=== PATIENT | male | born 1985 | race Caucasian/White ===

== ENCOUNTER 2023-06-03 16:52 | Emergency (ER) | payer OTHER, SELFPAY ==
[2023-06-03 17:07] VITALS: BP 134/61; PULSE 68; RESP 16; TEMP 36.6; O2SAT 100
--- NOTE | 2023-06-03 17:08 | ED.EAR ---
HPI - Ear Problem General Chief complaint: Ear Stated complaint: bilateral ear discomfort Time Seen by Provider: 06/03/23 17:06 Source: patient and RN notes reviewed Mode of arrival: ambulatory Limitations: no limitations History of Present Illness HPI Narrative: 38-year-old male presents with concern for bilateral ear pressure, sinus pain and pressure for 2 weeks. Reports he has been taking [id number] medications including allergy medicine, Sudafed, Flonase. He denies fever, aches, chills, sweats, shortness of breath, cough MD Complaint: ear pain Related Data Home Medications Medication Instructions Recorded Confirmed fexofenadine 180 mg tablet 180 mg PO DAILY 06/03/23 06/03/23 ([facility]) Allergies Allergy/AdvReac Type Severity Reaction Status Date / Time No Known Allergies Allergy Verified 06/03/23 16:59 Review of Systems Review of Systems: CONSTITUTIONAL: Denies malaise, chills, sweats, or fever. EYES: Denies visual changes, redness, or discharge. ENT: Reports rhinorrhea, congestion, sinus pain, ear pain CARDIOVASCULAR: Denies chest pain, palpitations, or edema. RESPIRATORY: Denies cough. Denies dyspnea. GASTROINTESTINAL: Denies abdominal pain, nausea, vomiting, diarrhea SKIN: Denies rash or itching. MUSCULOSKELETAL: Denies myalgia. NEUROLOGIC: Reports headache. All systems reviewed & are unremarkable except as noted in HPI and below PMFSH Comments At time of signature, agree with nursing past medical, surgical, social and family history. There is no relevant family history pertinent to the presenting complaint Exam Narrative: GENERAL: Well-appearing, well-nourished, and in no acute distress. HEAD: Normocephalic EYES: PERRLA, conjunctivae clear ENT: Nares clear, turbinates edematous. Mucous membranes moist. Right TtM pearly gomez with sharp light reflex, left TM erythematous; no tragal tenderness. Oropharynx not erythematous without lesions. Tonsils not enlarged and without exudate, no drooling, no hoarseness, no trismus, uvula midline. NECK: Supple. No lymphadenopathy CHEST: Clear to auscultation, breath sounds equal. No wheezing, rhonchi, rales, or stridor. No respiratory distress, speaks in full sentences. HEART: Regular rate and rhythm. No murmur heard. SKIN: Warm, dry, no rash. NEURO: Alert and oriented x3. PSYCH: Normal mood and affect Course Course Emergency Course: Patient is aware of diagnosis, understands and agrees to treatment plan. Anticipatory guidance given. Patient agrees to follow-up as directed and is aware of reasons to seek care at the emergency department. Portions of this record may have been created with voice recognition software Level of Care: Express Care Visit Vital Signs Vital signs: Vital Signs Temperature 97.9 F 06/03/23 17:07 Pulse Rate 68 06/03/23 17:07 Respiratory Rate 16 06/03/23 17:07 Blood Pressure 134/61 06/03/23 17:07 Pulse Oximetry 100 06/03/23 17:07 Oxygen Delivery Room Air 06/03/23 17:07 Temperature 97.9 F 06/03/23 17:07 Pulse Rate 68 06/03/23 17:07 Respiratory Rate 16 06/03/23 17:07 Blood Pressure 134/61 06/03/23 17:07 Pulse Oximetry 100 06/03/23 17:07 Oxygen Delivery Room Air 06/03/23 17:07 Reviewed. Medical Decision Making MDM Narrative Medical decision making narrative: Differential diagnosis considered: Quick virus, strep pharyngitis, allergic rhinitis, upper respiratory tract infection, sinusitis, rhinosinusitis, nasopharyngitis. viral pharyngitis, otitis media, otitis externa, otitis effusion, cerumen impaction, foreign body. Exam findings show no acute concerns or changes; patient is non-toxic appearing and is in no distress. Patient is appropriate for outpatient treatment and follow-up. Vital Signs Vital Signs: Vital Signs Temperature 97.9 F 06/03/23 17:07 Pulse Rate 68 06/03/23 17:07 Respiratory Rate 16 06/03/23 17:07 Blood Pressure 134/61 06/03/23
== END 2023-06-03 17:18 | disposition home or self-care (01) ==
PROVIDERS: Emergency Provider Nurse Practitioner
DX: J01.90 Acute sinusitis, unspecified (principal)
CPT/HCPCS: 99203; G0463

== ENCOUNTER 2023-07-27 16:25 | Emergency (ER) | payer OTHER, SELFPAY ==
[2023-07-27 16:37] VITALS: BP 139/62; PULSE 74; RESP 18; TEMP 36.2; O2SAT 99
--- NOTE | 2023-07-27 16:59 | ED.URI ---
HPI - URI/Sore Throat General Chief Complaint: Upper Respiratory Infection Stated Complaint: bilateral ear pain,congestion Time Seen by Provider: 07/27/23 16:45 Source: patient and RN notes reviewed Mode of arrival: ambulatory Limitations: no limitations History of Present Illness HPI Narrative: Patient presents today complaining of one-week history of nasal congestion, cough, headache, ear pressure. Denies fever, shortness of breath, sore throat. Currently rates his pain 7/10 and has been taking Sudafed and Mucinex without much relief. Patient was recently on Augmentin approximately 7 weeks ago for sinusitis. Related Data Home Medications Medication Instructions Recorded Confirmed fexofenadine 180 mg tablet 180 mg PO DAILY 06/03/23 07/27/23 ([facility]) Allergies Allergy/AdvReac Type Severity Reaction Status Date / Time No Known Allergies Allergy Verified 07/27/23 16:35 Review of Systems Review of Systems: CONSTITUTIONAL: Denies body aches, fever, chills, or sweats. EYES: Denies visual changes, redness, or discharge. ENT: Denies rhinorrhea, sore throat, or otalgia.+ congestion, ear pressure CARDIOVASCULAR: Denies chest pain, palpitations, or edema. RESPIRATORY: Denies dyspnea.+ cough GASTROINTESTINAL: Denies abdominal pain, nausea, vomiting, or diarrhea. GENITOURINARY: Denies dysuria or hematuria. SKIN: Denies rash, itching, or wounds. MUSCULOSKELETAL: Denies back pain, joint pain, or myalgia. NEUROLOGIC: Denies numbness, tingling, or weakness.+ headache PSYCH: Denies depression or anxiety. PMFSH Comments At time of signature, I have reviewed and agree with nursing past medical, surgical, social and family history unless otherwise noted. Please see nursing chart for further information. There is no relevant family history pertinent to the presenting complaint Exam Narrative: GENERAL: Mildly ill-appearing, well-nourished, and in no acute distress. HEAD: Normocephalic, atraumatic. EYES: EOMI. No redness or drainage. Conjunctivae normal. ENT: Mucous membranes pink and moist. Nares congested. No rhinorrhea. Serous effusion of left TM. Right TM erythematous and bulging with purulent material.. Throat normal. Uvula midline. NECK: Normal AROM. Supple. No lymphadenopathy. CHEST: No respiratory distress. Clear to auscultation. HEART: Regular rate and rhythm. No murmur appreciated. Normal peripheral pulses. EXTREMITIES: Normal range of motion. No edema. SKIN: Warm, dry, no rash. Capillary refill normal. Normal skin turgor. NEURO: No focal deficits. Alert and oriented x3. Gait steady. PSYCH: Normal affect. No signs of depression or anxiety. Course Course Level of Care: Express Care Visit Vital Signs Vital signs: Vital Signs Temperature 97.2 F L 07/27/23 16:37 Pulse Rate 74 07/27/23 16:37 Respiratory Rate 18 07/27/23 16:37 Blood Pressure 139/62 07/27/23 16:37 Pulse Oximetry 99 07/27/23 16:37 Oxygen Delivery Room Air 07/27/23 16:37 Temperature 97.2 F L 07/27/23 16:37 Pulse Rate 74 07/27/23 16:37 Respiratory Rate 18 07/27/23 16:37 Blood Pressure 139/62 07/27/23 16:37 Pulse Oximetry 99 07/27/23 16:37 Oxygen Delivery Room Air 07/27/23 16:37 Reviewed MDM - URI/Sore Throat MDM Narrative Medical decision making narrative: COVID-19 negative. Patient has been diagnosed with right otitis media. Remainder of symptoms are likely viral. Prescription for cefdinir sent to pharmacy, as patient was recently on Augmentin. No further testing indicated. Anticipatory guidance given. Differential Diagnosis Differential diagnosis: Likely upper respiratory infection, otitis media, sinusitis, viral infection and other (COVID-19) Lab Data Attestation: I reviewed the patient's lab results. Lab results narrative: COVID-19 negative Critical Care Time Critical Care Time Critical Care Time: No Discharge Plan Discharge Clinical Impression: Upper
== END 2023-07-27 17:10 | disposition home or self-care (01) ==
PROVIDERS: Emergency Provider Nurse Practitioner
DX: J06.9 Acute upper respiratory infection, unspecified (principal); H66.001 Acute suppurative otitis media without spontaneous rupture of ear drum, right ear; Z20.822 Contact with and (suspected) exposure to COVID-19
CPT/HCPCS: 87426; 99213; C9803; G0463

== ENCOUNTER 2024-05-13 08:53 | Emergency (ER) | payer OTHER, SELFPAY ==
[2024-05-13 09:02] VITALS: BP 118/67; PULSE 76; RESP 16; TEMP 36.8; O2SAT 99
--- NOTE | 2024-05-13 09:21 | ED.URI ---
HPI - URI/Sore Throat General Chief Complaint: Upper Respiratory Infection Stated Complaint: congestion Source: patient and RN notes reviewed Mode of arrival: ambulatory Limitations: no limitations History of Present Illness HPI Narrative: 39-year-old male presented for complaint of nasal congestion and drainage with mild cough over the past week. Denies shortness of breath, wheezing nausea, vomiting, fevers or chills. Taking Mucinex and Sudafed for symptoms. Daughter with similar symptoms. MD elicited complaint: cough Related Data Home Medications Medication Instructions Recorded Confirmed fexofenadine 180 mg tablet 180 mg PO DAILY 06/03/23 05/13/24 ([facility]) Allergies Allergy/AdvReac Type Severity Reaction Status Date / Time No Known Allergies Allergy Verified 05/13/24 08:54 Review of Systems Review of Systems: CONSTITUTIONAL: Denies malaise, chills, sweats, fever EYES: Denies visual changes, redness, or discharge ENT: Reports rhinorrhea, congestion, sinus pain, denies otalgia, sore throat CARDIOVASCULAR: Denies chest pain, palpitations, edema RESPIRATORY: Reports cough, post nasal drainage. Denies dyspnea GASTROINTESTINAL: Denies abdominal pain, nausea, vomiting, diarrhea SKIN: Denies rash or itching MUSCULOSKELETAL: Denies myalgia NEUROLOGIC: Denies headache Exam Narrative: GENERAL: Mildly Ill-appearing, nontoxic no acute distress. EYES: PERRLA, conjunctivae clear ENT: Mucous membranes moist. TM slightly erythematous, dull light reflex bilaterally; no tragal tenderness. Oropharynx not erythematous without lesions or exudate, no drooling, no hoarseness, no trismus, uvula midline. No tripod positioning, muffled voice, soft palate or pharyngeal wall bulging NECK: Supple. No lymphadenopathy CHEST: Clear to auscultation, breath sounds equal. No wheezing, rhonchi, rales, or stridor. No respiratory distress, speaks in full sentences. HEART: Regular rate and rhythm. No murmur heard. SKIN: Warm, dry, no rash. NEURO: Alert and oriented x3. PSYCH: Normal mood and affect Course Course Emergency Course: Patient is aware of diagnosis, understands and agrees to treatment plan. Anticipatory guidance given. Patient agrees to follow-up as directed and is aware of reasons to seek care at the emergency department. Portions of this record may have been created with voice recognition software Level of Care: [facility] Visit Vital Signs Vital signs: Vital Signs Temperature 98.3 F 05/13/24 09:02 Pulse Rate 76 05/13/24 09:02 Respiratory Rate 16 05/13/24 09:02 Blood Pressure 118/67 05/13/24 09:02 Pulse Oximetry 99 05/13/24 09:02 Oxygen Delivery Room Air 05/13/24 09:02 Temperature 98.3 F 05/13/24 09:02 Pulse Rate 76 05/13/24 09:02 Respiratory Rate 16 05/13/24 09:02 Blood Pressure 118/67 05/13/24 09:02 Pulse Oximetry 99 05/13/24 09:02 Oxygen Delivery Room Air 05/13/24 09:02 reviewed MDM - URI/Sore Throat MDM Narrative Medical decision making narrative: Discussed physical exam findings consistent with a viral URI, however patient reports history of sinus infections. Will send antibiotic. Advise not to started if symptoms do not persist beyond 10 days. Advised supportive measures and signs/symptoms to go to the ER. Pt is appropriate for outpt treatment and f/u. Differential Diagnosis Differential diagnosis: Likely upper respiratory infection, sinusitis and viral infection Discharge Plan Discharge Clinical Impression: Upper respiratory infection Patient Disposition: Home, Self-Care Condition: Stable Instructions: Antibiotic Form, Upper Respiratory Infection (ED) Additional Instructions: Recommend Flonase spray and Zyrtec (or Claritin/[facility]) over the counter Cough syrup may cause drowsiness; avoid driving or take it at night time. Tylenol 1000mg every 8 hours as needed for pain Symptomatic treatment includes: rest, fluids, and
== END 2024-05-13 09:31 | disposition home or self-care (01) ==
PROVIDERS: Emergency Provider Nurse Practitioner Family
DX: J06.9 Acute upper respiratory infection, unspecified (principal)
CPT/HCPCS: 99213; G0463